=== PATIENT | female | born 1955 | race Caucasian/White ===

== ENCOUNTER 2017-10-05 12:01 | Emergency (ER) | payer MEDICARE ==
[2017-10-05] MEDS ORDERED: Acetaminophen 500 MG TAB ONE (12:25)
--- NOTE | 2017-10-05 13:36 | CT ---
CT BRAIN WITHOUT CONTRAST: HISTORY: Fall, hit back of the head, headache, Parkinson's disease. FINDINGS: No evidence of infarct, hemorrhage, midline shift, or abnormal extraaxial fluid collections is seen. The ventricular size is appropriate and the basilar cisterns are patent. The bony calvarium is in tact. The visualized paranasal sinuses and mastoid air cells are well aerated. IMPRESSION: No CT evidence of acute intracranial process. POS: [facility]
== END 2017-10-05 13:40 | disposition home or self-care (01) ==
LOC: NAV ERS 12:01
DX: S00.03XA Contusion of scalp, initial encounter (principal); G20 Parkinson's disease; W18.2XXA Fall in (into) shower or empty bathtub, initial encounter
CPT/HCPCS: 70450

== ENCOUNTER 2018-01-07 15:51 | Emergency (ER) | payer MEDICARE ==
[2018-01-07 16:17] LABS: Bilirubin Negative (Negative); Blood, Urine Negative (Negative); Clarity Clear (Clear); Glucose, Urine (Dipstick) Negative (Negative); Leukocyte Negative (Negative); Nitrite Negative (Negative); Protein, Urine (Dipstick) Negative (Neg-Trace); Urobilinogen 0.2 mg/dL (0.2-1.0); pH, Urine 5.5 (5.0-9.0)
== END 2018-01-07 16:27 | disposition home or self-care (01) ==
LOC: NAV ERS 15:51
DX: S39.011A Strain of muscle, fascia and tendon of abdomen, initial encounter (principal); G20 Parkinson's disease; Z79.899 Other long term (current) drug therapy; W19.XXXA Unspecified fall, initial encounter
CPT/HCPCS: 81003; 99283

== ENCOUNTER 2018-02-25 16:07 | Emergency (ER) | payer MEDICARE ==
[2018-02-25 16:47] LABS: #Basophils 0.1 thou/uL (0.0-0.2); #Eosinphils 0.1 thou/uL (0.0-0.7); #Lymphocytes 1.3 thou/uL (1.20-3.40); #Monocytes 0.4 thou/uL (0.11-0.59); #Neutrophils 2.4 thou/uL (1.40-6.50); %Basophils 1.7 % (0.0-1.0); %Lymphocytes 30.6 % (21.0-51.0); %Monocytes 8.5 % (0.0-10.0); %Neutrophils 56.2 % (42.0-75.0); Hemoglobin 11.5 g/dL (12.0-16.0); Mean Corpuscular HGB CONC 30.8 g/dL (32.0-36.0); Mean Corpuscular Hemoglobin 24.6 pg (27.0-31.0); Mean Corpuscular Volume 79.8 fl (81.0-99.0); Mean Platelet Volume 8.5 fL (7.4-10.4); Platelet Count 216 thou/uL (130-400); RBC Distribution Width 17.1 % (11.5-14.5); Red Blood Cell (RBC) Count 4.68 mill/uL (4.20-5.40); White Blood Cell (WBC) Count 4.3 thou/uL (4.8-10.8)
[2018-02-25 16:56] LABS: ALT (SGPT) Less than 6 U/L (8-55); AST (SGOT) 12 U/L (5-34); Albumin 3.7 g/dL (3.5-5.0); Alkaline Phosphatase 89 U/L (40-150); Anion Gap 14 mmol/L (10-20); BUN (Urea Nitrogen) 20 mg/dL (9.8-20.1); Bilirubin, Total 0.3 mg/dL (0.2-1.2); Calc. Creatinine Clearance 0 mL/min (70-130); Calcium 9.1 mg/dL (7.8-10.44); Carbon Dioxide 25 mmol/L (22-29); Chloride 106 mmol/L (98-107); Estimated GFR-MDRD 79; Globulin 2.8 g/dL (2.4-3.5); Glucose 141 mg/dL (70-105); Potassium 3.9 mmol/L (3.5-5.1); Protein, Total 6.5 g/dL (6.0-8.3); Sodium 141 mmol/L (136-145)
[2018-02-25 17:00] LABS: CKMB 1.6 ng/mL (0-6.6); Troponin I Less than 0.010 ng/mL (< 0.028)
[2018-02-25 17:23] LABS: Bilirubin Negative (Negative); Blood, Urine Negative (Negative); Clarity Clear (Clear); Glucose, Urine (Dipstick) Negative (Negative); Leukocyte Negative (Negative); Nitrite Negative (Negative); Protein, Urine (Dipstick) Negative (Neg-Trace); Specific Gravity, Urine 1.015 (1.005-1.030); Urobilinogen 0.2 mg/dL (0.2-1.0)
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
== END 2018-02-25 17:45 | disposition home or self-care (01) ==
LOC: NAV ERS 16:07
DX: S00.83XA Contusion of other part of head, initial encounter (principal); M06.9 Rheumatoid arthritis, unspecified; G20 Parkinson's disease; Z79.899 Other long term (current) drug therapy; W19.XXXA Unspecified fall, initial encounter
CPT/HCPCS: 36416; 51701; 70450; 72125; 80053; 81003; 82553; 83605; 84484; 85025; 93005; 94760; A4353

== ENCOUNTER 2018-08-11 16:36 | Outpatient (CLI) | payer MEDICARE ==
--- NOTE | 2018-08-11 18:07 | RAD ---
TWO VIEWS OF THE LEFT FOREARM: 08/11/18 COMPARISON: None. HISTORY: Fell this morning and landed on elbow and forearm with pain and swelling. FINDINGS: Single view of the left forearm shows moderate diffuse soft tissue swelling. There is no evidence of fracture or dislocation. No radiopaque foreign body is seen. IMPRESSION: Soft tissue swelling without underlying acute osseous abnormality. POS: [facility]
--- NOTE | 2018-08-11 18:08 | RAD ---
TWO VIEWS OF THE LEFT ELBOW: 08/11/18 COMPARISON: None. HISTORY: Fell this morning and landed on elbow with pain and swelling. FINDINGS: Two views of the left elbow shows moderate diffuse soft tissue swelling in the proximal forearm. No f racture or dislocation are seen. No elbow effusion is present. IMPRESSION: No evidence of acute osseous abnormality. POS: [facility]
== END 2018-08-11 16:37 | disposition home or self-care (01) ==
LOC: NAV RAD 16:36
PROVIDERS: ATTEND Nurse Practitioner Family
DX: M25.522 Pain in left elbow (principal); M79.89 Other specified soft tissue disorders; W19.XXXA Unspecified fall, initial encounter

== ENCOUNTER 2018-08-13 17:37 | Emergency (ER) | payer MEDICARE ==
[2018-08-13] MEDS ORDERED: Adacel (T-DAP) 0.5 ML VIAL ONE (18:25)
--- NOTE | 2018-08-13 18:33 | RAD ---
LEFT ELBOW FOUR VIEW 08/13/18 HISTORY: Fall. COMPARISON: None. FINDINGS: There are extensive soft tissue swelling. There is no significant joint effusion. No acute displaced fracture or malalignment is appreciated. IMPRESSION: Dorsal soft tissue swelling without acute fracture or malalignment. POS: [facility]
== END 2018-08-13 18:52 | disposition home or self-care (01) ==
LOC: NAV ERS 17:37
DX: S01.01XA Laceration without foreign body of scalp, initial encounter (principal); G20 Parkinson's disease; Z87.891 Personal history of nicotine dependence; Z79.899 Other long term (current) drug therapy; W19.XXXA Unspecified fall, initial encounter
CPT/HCPCS: 12002; 90471; 90715

== ENCOUNTER 2018-08-16 02:12 | Emergency (ER) | payer MEDICARE ==
[2018-08-16] MEDS ORDERED: Lidocaine 1% w/Epinephrine 1:100K 30 ML VIAL ONE (02:23)
[2018-08-16] MEDS ORDERED: Triple Antibiotic Oint 1 GM Packet ONE (02:51)
== END 2018-08-16 02:55 | disposition home or self-care (01) ==
LOC: NAV ERS 02:12
DX: S51.811A Laceration without foreign body of right forearm, initial encounter (principal); I10 Essential (primary) hypertension; M06.9 Rheumatoid arthritis, unspecified; G20 Parkinson's disease; Z87.891 Personal history of nicotine dependence; Z79.899 Other long term (current) drug therapy; Z79.891 Long term (current) use of opiate analgesic; W18.30XA Fall on same level, unspecified, initial encounter
CPT/HCPCS: 12004; J2001

== ENCOUNTER 2018-09-23 21:26 | Emergency (ER) | payer MEDICARE ==
--- NOTE | 2018-09-23 22:44 | CT ---
NONCONTRAST CT HEAD: 09/23/18 HISTORY: Head and neck pain. Head laceration with bleeding controlled. COMPARISON: 02/25/18. FINDINGS: There is no evidence of a hemorrhage, acute infarction, mass effect or midline shift. The ventricula r system is normal in size, shape and position. There is mild cerebral volume loss similar to prior e xam. There is minimal scalp soft tissue swelling seen in the right parietal region. No calvarial fra cture is seen. The visualized paranasal sinuses and mastoid air cells are clear. No other interval ch john. IMPRESSION: 1. No acute intracranial abnormality demonstrated. 2. Minimal right parietal scalp hematoma. POS: [facility]
[2018-09-23] MEDS ORDERED: Bacitracin Zinc 1 Packet ONE (23:03)
--- NOTE | 2018-09-23 23:24 | CT ---
NONCONTRAST CT CERVICAL SPINE 09/23/18 HISTORY: Head and neck pain, head laceration with bleeding controlled. Patient is post fall at 2100 hours. COMPARISON: 02/25/18. TECHNIQUE: Contiguous axial CT images are obtained through the cervical spine from the skull base to the level o f T3 vertebral body. Sagittal and coronal reformatted images are provided. FINDINGS: There are mild degenerative changes again seen in the cervical spine similar to the prior study. No f racture or subluxation is seen involving the cervical spine. The prevertebral soft tissues are within normal limits. Partially calcified hypodense lesion is again seen in the right lobe of the thyroid gland. No other i nterval change. IMPRESSION: Mild degenerative changes of the cervical spine without evidence of a fracture. POS: [facility]
== END 2018-09-23 23:10 | disposition home or self-care (01) ==
LOC: NAV ERS 21:26
DX: S01.01XA Laceration without foreign body of scalp, initial encounter (principal); G20 Parkinson's disease; Z87.891 Personal history of nicotine dependence; Z79.899 Other long term (current) drug therapy; W18.30XA Fall on same level, unspecified, initial encounter; Y93.01 Activity, walking, marching and hiking; Y92.009 Unspecified place in unspecified non-institutional (private) residence as the place of occurrence of the external cause
CPT/HCPCS: 12001; 70450; 72125

== ENCOUNTER 2018-10-01 13:23 | Emergency (ER) | payer MEDICARE | END 2018-10-01 13:37 | disposition home or self-care (01) | LOC: NAV ERS 13:23 | DX: S01.01XD Laceration without foreign body of scalp, subsequent encounter (principal); Z87.891 Personal history of nicotine dependence; Z79.899 Other long term (current) drug therapy; G20 Parkinson's disease ==

== ENCOUNTER 2019-10-20 11:48 | Outpatient (CLI) | payer MEDICARE ==
--- NOTE | 2019-10-20 13:19 | RAD ---
LEFT KNEE FOUR VIEWS: HISTORY: Left knee pain. FINDINGS: Degenerative changes are present. No fracture, dislocation or bony destruction is identified. IMPRESSION: Left knee osteoarthritis. POS: [facility]
== END 2019-10-20 11:49 | disposition home or self-care (01) ==
LOC: NAV RAD 11:48
PROVIDERS: ATTEND Orthopaedic Surgery
DX: M25.562 Pain in left knee (principal); M17.12 Unilateral primary osteoarthritis, left knee

== ENCOUNTER 2020-01-20 10:00 | Outpatient (CLI) | payer MEDICARE ==
--- NOTE | 2020-01-24 07:25 | CT ---
CT of thethoracic spine: 01/20/2020 COMPARISON:Thoracic spine radiographs 06/09/2019 HISTORY:Compression fracture TECHNIQUE: Serial axial CT imaging at1.75 mm from thelower cervical spine through upper lumbar spine without contrast. Coronal and sagittal reformatted imaging Findings:Upper thoracic spine levoscoliosis. Incompletely imaged prominent hiatal hernia noted, simil ar when compared to prior CT chest performed 05/01/2014. Mild linear density noted in the partially imaged lung bases. Minimal anterolisthesis at C7-T1 noted. Evaluation for central canal and/or neural foraminal stenosis is limited on thoracic spine CT. Minimal anterior wedging of T2 and T3 vertebral bodies noted suggesting mild age indeterminant anteri or wedge compression fractures with approximately 20% loss of vertebral body height anteriorly at T2 and 35% loss of vertebral body height anteriorly at T3. The T4, T5, T6, T7, T8, T9, and T10 vertebral bodies demonstrate normal height with no evidence for f racture of these vertebral bodies. The T11 vertebral body demonstrates an anterior wedge compression fracture with approximately 35% of loss of vertebral body height anteriorly, which is not significantly changed when compared to 06/09/2019 thoracic spine radiographs. No evidence for a T12 fracture. There is a stable burst fracture at L1 with mild osseous retropulsion status post kyphoplasty. Incomp letely imaged clips in right upper quadrant suggest prior cholecystectomy. Mild central canal stenosis at L1 on the basis of osseous retropulsion. Impression:Multiple thoracic spine fractures as detailed above. Prominent incompletely assessed hiata l hernia.
== END 2020-01-20 10:01 | disposition home or self-care (01) ==
LOC: NAV CT 10:00
PROVIDERS: ATTEND Specialist
DX: S22.41XA Multiple fractures of ribs, right side, initial encounter for closed fracture (principal); S22.000A Wedge compression fracture of unspecified thoracic vertebra, initial encounter for closed fracture; K44.9 Diaphragmatic hernia without obstruction or gangrene; R91.8 Other nonspecific abnormal finding of lung field
CPT/HCPCS: 71250; 72128

== ENCOUNTER 2020-07-29 18:00 | Emergency (ER) | payer MEDICARE ==
[2020-07-29 18:50] LABS: INR-International Normal Ratio 1.2; PTT 31.5 sec (22.9-36.1); Prothrombin Time 15.1 sec (12.0-14.7)
[2020-07-29 18:59] LABS: ALT (SGPT) Less than 3 U/L (8-55); AST (SGOT) 11 U/L (5-34); Albumin 3.7 g/dL (3.4-4.8); Alkaline Phosphatase 78 U/L (40-110); Anion Gap 15 mmol/L (10-20); BUN (Urea Nitrogen) 53 mg/dL (9.8-20.1); Bilirubin, Total 0.8 mg/dL (0.2-1.2); Calc. Creatinine Clearance 0 mL/min (70-130); Calcium 8.1 mg/dL (7.8-10.44); Carbon Dioxide 25 mmol/L (23-31); Chloride 102 mmol/L (98-107); Estimated GFR-MDRD 54; Globulin 2.4 g/dL (2.4-3.5); Glucose 121 mg/dL (80-115); Lipase 6 U/L (8-78); Potassium 3.2 mmol/L (3.5-5.1); Protein, Total 6.1 g/dL (6.0-8.3); Sodium 139 mmol/L (136-145)
[2020-07-29] MEDS ORDERED: Promethazine HCl 25 MG/ML VIAL ONE (19:00)
[2020-07-29] MEDS ORDERED: Sodium Chloride 0.9% 1,000 ML ONE (19:00)
[2020-07-29] MEDS ORDERED: Pantoprazole 40 MG VIAL ONE (19:00)
[2020-07-29 19:05] LABS: Band 1 % (5-11); Differential Comment FEW PYKNOTIC SEG PRESENT; Hemoglobin 11.3 g/dL (12.0-16.0); Lymphocytes 4 % (21-51); MDiff Complete? YES; Mean Corpuscular HGB CONC 30.7 g/dL (32.0-36.0); Mean Corpuscular Hemoglobin 27.8 pg (27.0-31.0); Mean Corpuscular Volume 90.6 fL (78.0-98.0); Mean Platelet Volume 7.9 fL (7.4-10.4); Monocytes 2 % (0-10); Neutrophil 91 % (42-75); Platelet Count 331 thou/uL (130-400); RBC Distribution Width 13.4 % (11.5-14.5); Reactive Lymphocytes 1 % (0-10); Red Blood Cell (RBC) Count 4.04 mill/uL (4.20-5.40); White Blood Cell (WBC) Count 22.6 thou/uL (4.8-10.8)
--- NOTE | 2020-07-29 19:14 | RAD ---
FRONTAL CHEST RADIOGRAPH UPRIGHT ABDOMEN: Date: 07-29-2020 PROVIDED CLINICAL HISTORY: Abdominal pain FINDINGS: The cardiac and mediastinal silhouette is within normal limits. No focal consolidation, pleural fluid , or pneumothorax apparent. The abdominal bowel gas pattern is nonspecific. There is no evidence for pneumoperitoneum. Surgical c lips right upper quadrant. IMPRESSION: 1. No evidence for an acute cardiopulmonary process. 2. Nonspecific bowel gas pattern. POS: [facility]
[2020-07-29 19:24] LABS: CKMB 2.8 ng/mL (0-6.6)
== END 2020-07-29 20:08 | disposition short-term general hospital (02) ==
LOC: NAV ERS 18:00
DX: K92.2 Gastrointestinal hemorrhage, unspecified (principal); D64.9 Anemia, unspecified; E86.0 Dehydration; D72.829 Elevated white blood cell count, unspecified; R79.89 Other specified abnormal findings of blood chemistry; M06.9 Rheumatoid arthritis, unspecified; G20 Parkinson's disease; Z87.891 Personal history of nicotine dependence; Z79.891 Long term (current) use of opiate analgesic; Z79.899 Other long term (current) drug therapy
CPT/HCPCS: 74022; 80053; 82271; 82274; 82553; 83605; 83690; 84484; 85025; 85610; 85730; 96365; 96375; C9113; J2550; J7050

== ENCOUNTER 2020-11-01 19:55 | Emergency (ER) | payer MEDICARE ==
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
[2020-11-01] MEDS ORDERED: Sodium Chloride 0.9% 1,000 ML ONE (21:30)
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
[2020-11-01 21:52] LABS: #Lymphocytes 0.8 thou/uL (1.20-3.40); #Monocytes 0.6 thou/uL (0.11-0.59); #Neutrophils 7.9 thou/uL (1.40-6.50); %Basophils 0.3 % (0.0-1.0); %Eosinophils 0.2 % (0.0-10.0); %Lymphocytes 8.1 % (21.0-51.0); %Monocytes 6.6 % (0.0-10.0); %Neutrophils 84.8 % (42.0-75.0); Hemoglobin 10.8 g/dL (12.0-16.0); Mean Corpuscular HGB CONC 31.2 g/dL (32.0-36.0); Mean Corpuscular Hemoglobin 28.3 pg (27.0-31.0); Mean Corpuscular Volume 90.7 fL (78.0-98.0); Mean Platelet Volume 7.8 fL (7.4-10.4); Platelet Count 282 thou/uL (130-400); RBC Distribution Width 15.2 % (11.5-14.5); White Blood Cell (WBC) Count 9.4 thou/uL (4.8-10.8)
[2020-11-01 22:06] LABS: Anion Gap 13 mmol/L (10-20); BUN (Urea Nitrogen) 13 mg/dL (9.8-20.1); Calc. Creatinine Clearance 0 mL/min (70-130); Calcium 8.7 mg/dL (7.8-10.44); Carbon Dioxide 26 mmol/L (23-31); Chloride 108 mmol/L (98-107); Glucose 109 mg/dL (80-115); Potassium 4.2 mmol/L (3.5-5.1); Sodium 143 mmol/L (136-145)
[2020-11-01 22:36] LABS: Bilirubin Negative (Negative); Blood, Urine Negative (Negative); Clarity Clear (Clear); Glucose, Urine (Dipstick) Negative (Negative); Ketone, Urine Negative (Negative); Leukocyte Negative (Negative); Nitrite Negative (Negative); Protein, Urine (Dipstick) Negative (Neg-Trace); Urobilinogen 0.2 mg/dL (Less than 2)
== END 2020-11-01 23:28 | disposition home or self-care (01) ==
LOC: NAV ERS 19:55
DX: S00.03XA Contusion of scalp, initial encounter (principal); S80.01XA Contusion of right knee, initial encounter; M06.9 Rheumatoid arthritis, unspecified; D64.9 Anemia, unspecified; Z87.891 Personal history of nicotine dependence; Z79.891 Long term (current) use of opiate analgesic; Z79.899 Other long term (current) drug therapy; W05.0XXA Fall from non-moving wheelchair, initial encounter
CPT/HCPCS: 36415; 51701; 70450; 80048; 81003; 85025; 93005; J7050